=== PATIENT | female | born 1995 | race Two or more races ===

== ENCOUNTER → 2024-12-10 | Day surgery (SDC) | payer OTHER ==
[~2024-12-10] VITALS: Ht 165.1 cm; Wt 77.1 kg
[~2024-12-10] MED LIST: 0.9 % SODIUM CHLORIDE 1,000 ML IV ONE; CEFTRIAXONE SODIUM 2,000 MG VIAL IV ONE; CEFTRIAXONE SODIUM 2,000 MG VIAL ONE; MEPERIDINE HCL/PF 25 MG/ML VIAL IV PRN; MONDOXYNE NL100 MG PO; MORPHINE SULFATE 4 MG in 0.9 % SODIUM CHLORIDE 9 ML IV PRN; MORPHINE SULFATE 4 MG/ML CARTRIDGE IV PRN; NAPR500T14 PO; ONDANSETRON HCL 2 MG/ML VIAL IV PRN; POVIDONE-IODINE 118 ML BOTT TOP ONE; PROMETHAZINE HCL 50 MG/ML AMPUL IM ONE
--- NOTE | 2024-12-10 10:17 | NUR ---
PTE ALERTA YORIENTADA X3 REFIERE VENIR POR REFERIDO DE DR DAVID REYES PARA UN RASPE. SE MIDEN S/V Y SE UBICA.
--- NOTE | 2024-12-10 11:04 | NUR ---
SE REALIZAN LAB Y SE ADMINISTREAN [facility] MEDICA BAJO MEDIDAS ASEPTICAS
[2024-12-10 11:18] LABS: HEMATOCRIT 39.2 % (36.0-45.00); MEAN CELL VOLUME 87.4 fL (80.00-100.00); MEAN CORPUSCULAR HEMOGLOBIN 31.2 pg (27.00-32.0); MEAN CORPUSCULAR HGB CONC 35.6 g/dl (32.0-36.0); PLATELET COUNT 180 K/uL (150-450); RED BLOOD COUNT 4.48 M/uL (4.00-6.00)
[2024-12-10 11:37] LABS: INR 0.99; PARTIAL THROMBOPLASTIN TIME 29.3 SECONDS (22.0-34.0); PROTHROMBIN TIME 10.8 SECONDS (9.0-11.5)
[2024-12-10 11:41] LABS: ALBUMIN 3.8 gm/dL (3.4-5.0); BILIRUBIN TOTAL 0.5 mg/dL (0.3-1.2); CALCIUM 9.2 mg/dL (8.5-10.1); CREATININE SERUM 0.6 mg/dL (0.55-1.02); GFR 119.04; GLOBULINA 3.5 G/DL (2.4-3.5); POTASSIUM 3.74 mEq/L (3.5-5.1); TOTAL PROTEIN 7.3 gm/dL (6.4-8.2)
[2024-12-10 15:12] VITALS: BP 112/67; O2SAT 100
== END | disposition home or self-care (01) ==
LOC: ER 10:10 → EDSTATUS 10:10 → CIR.AMB 11:12 → ER 11:12 → CIR.AMB 11:12 → ER 11:27 → SURH 11:27
PROVIDERS: ATTEND General Practice
DX: O02.1 Missed abortion (principal); O72.2 Delayed and secondary postpartum hemorrhage